=== PATIENT | female | born 1935 | race Caucasian/White ===

== ENCOUNTER 2018-01-12 19:30 | Observation (INO) ==
--- NOTE | 2018-01-12 19:54 | Emergency Department Note ---
Disposition Clinical Impression: TIA (transient ischemic attack) Disposition: Admitted As Inpatient Condition: Fair General Adult HPI - General Chief complaint: ED Neuro Symptoms/Deficit Stated complaint: Possible Stroke Time Seen by Provider: 01/12/18 19:44 Source: patient, family Mode of arrival: ambulatory Limitations: no limitations Nursing Notes Reviewed: Yes Vital Signs Reviewed: Yes - History of Present Illness HPI Narrative: 82-year-old female with significant past medical history of hypertension presenting to the emergency department chief complaint of stroke like symptoms. Patient states today around 2:00 she had a 5 minute episode where she was unable to speak. She states she could not get the words out. Son at bedside was there and witnessed the episode. He states it lasted approximately 5 minutes and then she went back to baseline. Has been asymptomatic since. Patient states she also had a mild headache at that time and laid down to sleep. When she woke up she was still having a mild headache so her son brought her in for further evaluation. They were concerned she had a stroke. She has no history of cardiac disease or stroke. Is not on any anticoagulation. Pain Scale: 3 - Related Data Home Medications Medication Instructions Recorded Confirmed Buspirone HCl [Buspar] 7.5 mg PO BID 01/12/18 01/12/18 Fluticasone Propionate Nasal 1 spray NS QPM 01/12/18 01/12/18 [Flonase] amLODIPine [Norvasc] 5 mg PO DAILY 01/12/18 01/12/18 Allergies Allergy/AdvReac Type Severity Reaction Status Date / Time aspirin Allergy See Verified 01/12/18 19:36 Comments azithromycin Allergy See Verified 01/12/18 19:36 Comments demeclocycline Allergy See Verified 01/12/18 19:36 [From Declomycin] Comments Iodamide Allergy See Verified 01/12/18 19:36 Comments lincomycin [From Lincocin] Allergy See Verified 01/12/18 19:36 Comments Penicillins Allergy See Verified 01/12/18 19:36 Comments Sulfa (Sulfonamide Allergy See Verified 01/12/18 19:36 Antibiotics) Comments All systems ED: reviewed and negative except as stated. Constitutional: Denies: fever, chills Eyes: Reports: as per HPI ENT ED: Reports: as per HPI Cardiovascular: Denies: chest pain, palpitations, dyspnea on exertion Respiratory: Denies: cough, dyspnea, wheezes Gastrointestinal: Denies: abdominal pain, nausea, vomiting Genitourinary: Reports: as per HPI Musculoskeletal: Reports: as per HPI Integumentary: Reports: as per HPI Neurological: Denies: numbness, paresthesias Psychiatric: Reports: as per HPI Endocrine: Reports: as per HPI Hematological/Lymphatic: Reports: as per HPI Allergic/Immunologic: Reports: as per HPI Past Medical History - Past Medical History Attestation: Yes The following information was validated with the patient. Medical history: Reports: cancer, diabetes, hypertension - Social History Smoking Status: Never smoker Smokeless Tobacco Status: No Alcohol use: Reports: none Drug use: Reports: none Physical Exam - General Limitations: no limitations General appearance: alert, in no apparent distress - Head Head exam: atraumatic, normocephalic, normal inspection - Eye Eye exam: Present: normal appearance, PERRL, EOMI. Absent: scleral icterus, conjunctival injection - ENT ENT exam: normal exam, mucous membranes moist - Neck Neck exam: Present: normal inspection, full ROM. Absent: tenderness, meningismus - Chest Chest inspection: Present: normal inspection, symmetric chest wall rise. Absent : tenderness, rash - Respiratory Respiratory exam: Present: normal lung sounds bilaterally. Absent: respiratory distress, wheezes - Cardiovascular Cardiovascular exam: Present: regular rate, normal rhythm, normal heart sounds - Abdominal Exam Abdominal exam: Present: soft, Non-Tender. Absent: distention, guarding, rebound - Extremities Exam Extremities exam: Present: normal inspection, full ROM - Neurological Exam Neurological exam: Present: alert, oriented X3, CN II-XII intact, normal gait, other (Cerebellar exam within normal limits). Absent: motor sensory deficit - Psychiatric Psychiatric exam: Present: normal affect, normal mood - Skin Skin exam: Present: warm, intact Course Course Narrative: 82-year-old female presenting for strokelike symptoms. On examination patient is asymptomatic. NIH score 0. She is alert and oriented 3 in the room. Hypertensive with a systolic in the 200s but otherwise hemodynamically stable. Concern for TIA at this time. We will perform a strokelike workup including CT of the head and basic laboratory analysis. Patient is allergic to IV dye therefore CTA of the head and neck will not be able to be completed. Disposition most likely admission but pending results. Patient agrees with this plan. We will not be able to provide the patient with aspirin in the emergency department due to her allergy. - Reevaluation(s) Reevaluation #1: Patient's laboratory analysis and CT of the head within normal limits. At this time will plan to admit her for further evaluation and TIA workup. I spoke with the hospitalist corrections cadet Dr. Amado who agrees to accept the patient at this time. Patient is alert and oriented 3 in the room. Hemodynamically stable. Patient agrees with this plan. Vital Signs Temperature 99.3 F 01/12/18 19:36 Pulse Rate 98 01/12/18 19:36 Respiratory Rate 16 01/12/18 19:36 Blood Pressure 227/102 01/12/18 19:36 O2 Sat by Pulse Oximetry 98 01/12/18 19:36 Temperature 97.9 F 01/13/18 04:01 Pulse Rate 78 01/13/18 04:01 Respiratory Rate 16 01/13/18 04:01 Blood Pressure 176/76 01/13/18 04:01 O2 Sat by Pulse Oximetry 97 01/13/18 04:01 Oxygen Delivery Oxygen Delivery Room Air Medical Decision Making - Lab Data Result diagrams: 01/12/18 20:31 01/12/18 20:31 Lab Results 01/12/18 01/12/18 01/12/18 Range/Units 20:31 20:31 20:31 WBC 4.5 (4.3-11.1) K/mcL RBC 5.35 H (3.82-4.97) M/mcL Hgb 15.8 H (11.5-15.4) g/dL Hct 46.8 H (35.3-44.9) % MCV 87.5 (83.0-100.0) fL MCH 29.5 (28.0-33.3) pg MCHC 33.8 (31.6-35.5) g/dL RDW 12.7 (11.5-14.5) % Plt Count 196 (140-400) K/mcL MPV 10.6 (9.4-12.4) fL PT 11.4 (9.4-12.1) Seconds INR 1.0 APTT 30.2 (26.0-36.0) Seconds Sodium 138 (136-145) mEq/L Potassium 3.8 (3.5-5.1) mEq/L Chloride 102 (98-107) mEq/L Carbon Dioxide 25 (23-29) mEq/L BUN 16 (8-23) mg/dL Creatinine 0.80 (0.60-1.20) mg/dL Est GFR ( Amer) > 60 (> 60) Est GFR (Non-Af Amer) > 60 (> 60) BUN/Creatinine Ratio 20 (6-26) Glucose 188 H (70-105) mg/dL Calculated Osmolality 292 (280-300) Calcium 9.4 (8.6-10.3) mg/dL Troponin I < 0.03 (< 0.04) ng/mL Attestation Statement - Attestation Attestation: Dr Emery note: Pt seen in conjunction w/ resident DR Sonia Landers; please see her charting for complete documentation; I spent face to face time w/ the pt and agree w/ the pt's treatment and disposition; Ct scan results reviewed; sx lasted approx 5 mins at home around 2:30 today; no signs/sx in the ER; Ct scan non focal; no indication for tpa at this time; accepted by the hospitalist, in improved/ stable condition;
[2018-01-12 20:55] LABS: Hematocrit 46.8 % (35.3-44.9); Hemoglobin 15.8 g/dL (11.5-15.4); Mean Corpuscular HGB Conc 33.8 g/dL (31.6-35.5); Mean Corpuscular Hemoglobin 29.5 pg (28.0-33.3); Mean Corpuscular Volume 87.5 fL (83.0-100.0); Mean Platelet Volume 10.6 fL (9.4-12.4); Platelet Count 196 K/mcL (140-400); Red Blood Count 5.35 M/mcL (3.82-4.97); Red Cell Distribution Width 12.7 % (11.5-14.5)
[2018-01-12 21:02] LABS: Prothrombin Time 11.4 Seconds (9.4-12.1)
[2018-01-12 21:05] LABS: Activated Partial Thrombo Time 30.2 Seconds (26.0-36.0)
[2018-01-12 21:16] LABS: BUN/Creatinine Ratio 20 (6-26); Blood Urea Nitrogen 16 mg/dL (8-23); Calcium 9.4 mg/dL (8.6-10.3); Carbon Dioxide 25 mEq/L (23-29); Chloride 102 mEq/L (98-107); Glucose 188 mg/dL (70-105); Osmolality,Calculated 292 (280-300); Potassium 3.8 mEq/L (3.5-5.1); Sodium 138 mEq/L (136-145); eGFR For Non-African Americans > 60 (> 60)
[2018-01-12 21:17] LABS: Troponin I < 0.03 ng/mL (< 0.04)
[2018-01-13] MEDS ORDERED: Naloxone 0.4 MG/ML INJ IVP PRN (05:09)
[2018-01-13] MEDS ORDERED: Dextrose Gel 15 GM/37.5 ML TUBE PO PRN ×2 (05:10)
[2018-01-13] MEDS ORDERED: *HR* Dextrose 50 % in Water (Syg) 50 ML SYRINGE IVP PRN (05:10)
[2018-01-13] MEDS ORDERED: D5% in Water 1,000 ML IVC PRN (05:10)
--- NOTE | 2018-01-13 05:20 | Internal Med History&Physical ---
Date of Encounter: 01/13/18 Time of Encounter: 03:43 Internal Medicine - H&P: HPI Chief complaint: TIA vs. CVA Admitted From: Emergency Dept Plans for Post Hospital Care: Home History of present illness: Ms. Bee is a 82 year old female Patient states she had an episode the day of her admission where she was unable to speak coherently for about 5 minutes. The episode occurred around 2pm, witnessed by the patient's [id number]. She had gotten up to go to the bathroom, then upon returning was trying to talk, but her words made no sense, and she could not talk. Her [id number] said that she thought the patient was also confused because she could not get her words out. She states that she has never had symptoms like this before. Her son was called and came over to the house to find the patient sitting on the couch, able to speak and no longer confused. He suggested that she go take a nap, which she did for about 2 hours. upon waking up she had a significant headache, and took 2 tylenol, which helped. Her son had done some research online regarding strokes, became concerned and decided to bring her to the ER for further evaluation. In the ER her cbc, BMP and troponin were within normal limits. A head CT also showed no acute intracranial abnormality. Due to her symptoms, she was admitted to the hospital for further monitoring. Upon my assessment, patient was sleeping comfortably in the hospital bed prior to my arrival. She was AOX3, and had no difficulty with answering questions. She denies headache, weakness, dysphagia, nause,a vomiting, chest pain, SOB, diarrhea and constipation. Past Med Surg Social Fam HX - Past Medical History Medical history: cancer, diabetes, hypertension Psychiatric history: no psych history - Past Surgical History Surgical History: breast surgery, cancer surgery - Social History Smoking Status: Never smoker Smokeless Tobacco Status: No Alcohol use: none Drug use: none - Family History Father Adopted: No Living Status: Age at : 85 Internal Medicine - H&P: Meds Buspirone HCl [Buspar] 7.5 mg PO BID 01/12/18 [History] Fluticasone Propionate Nasal [Flonase] 1 spray NS QPM 01/12/18 [History] amLODIPine [Norvasc] 5 mg PO DAILY 01/12/18 [History] 3 Allergy/AdvReac Type Severity Reaction Status Date / Time aspirin Allergy See Verified 01/12/18 19:36 Comments azithromycin Allergy See Verified 01/12/18 19:36 Comments demeclocycline Allergy See Verified 01/12/18 19:36 [From Declomycin] Comments Iodamide Allergy See Verified 01/12/18 19:36 Comments lincomycin [From Lincocin] Allergy See Verified 01/12/18 19:36 Comments Penicillins Allergy See Verified 01/12/18 19:36 Comments Sulfa (Sulfonamide Allergy See Verified 01/12/18 19:36 Antibiotics) Comments All Systems PM: A 10-system review of systems was performed and is negative for pertinent findings except as documented above in the HPI. - Constitutional Vitals: Temp Pulse Resp BP Pulse Ox 97.9 F 78 16 176/76 97 01/13/18 04:01 01/13/18 04:01 01/13/18 04:01 01/13/18 04:01 01/13/18 04:01 General appearance: Present: cooperative, A&O X 3, pleasant, no acute distress, answers questions appropriately Exam: As above - Head Head exam: Present: normal inspection - Eye Eye exam: Present: EOMI, normal appearance - Neck Neck exam general surgery: Present: full ROM. Absent: tenderness - Respiratory Respiratory exam: Present: CTAB. Absent: chest wall tenderness, decreased breath sounds, respiratory distress, wheezes - Cardiovascular Cardiovascular exam: Absent: diastolic murmur, systolic murmur - GI/Abdominal GI/Abdominal exam: Present: normal bowel sounds, soft. Absent: guarding, tenderness - Extremities Exam Extremities exam: Present: normal inspection, warm, radial pulses palpable and symmetrical. Absent: calf tenderness, pedal edema, tenderness - Neurological Exam Neurological exam: Present: CN II-XII intact, oriented X3, no focal deficits, strengths equal and symetr throughout. Absent: motor sensory deficit, pronater drift, facial droop, speech deficit - Psychiatric Psychiatric exam: Present: normal affect, normal mood - Skin Skin exam: Present: dry, normal color, warm Internal Med - H&P Results - Labs CBC & Chem 7: 01/13/18 05:21 01/13/18 05:21 - Assessment and plan (1) TIA (transient ischemic attack) Current Visit: Yes Status: Acute Assessment and plan: Patient had an episode of expressive aphasia the afternoon of her admission. Episode lasted about 5 minutes. Currently her speech deficit has resolved. CT head was negative. MRI in the morning Continue to monitor. (2) Diabetes Current Visit: Yes Status: Acute Assessment and plan: Dietary controlled, not on insulin. Monitor sugars with meals and at night Low dose sliding scale insulin as needed. Qualifiers: Diabetes mellitus type: type 2 Diabetes mellitus residential insulin use: without residential use Diabetes mellitus complication status: without complication Qualified Code(s): E11.9 - Type 2 diabetes mellitus without complications (3) DVT prophylaxis Current Visit: Yes Status: Acute Assessment and plan: SCDs - Time Spent With Patient Total time spent is greater than 50% in coordination of care (as documented) at patient's floor/unit and/or counseling patient: Greater than 35 minutes
[2018-01-13 05:36] LABS: Hematocrit 42.8 % (35.3-44.9); Hemoglobin 14.6 g/dL (11.5-15.4); Mean Corpuscular HGB Conc 34.1 g/dL (31.6-35.5); Mean Corpuscular Volume 87.9 fL (83.0-100.0); Mean Platelet Volume 10.6 fL (9.4-12.4); Platelet Count 182 K/mcL (140-400); Red Blood Count 4.87 M/mcL (3.82-4.97); Red Cell Distribution Width 12.8 % (11.5-14.5)
[2018-01-13 05:53] LABS: BUN/Creatinine Ratio 18 (6-26); Blood Urea Nitrogen 14 mg/dL (8-23); Calcium 9.1 mg/dL (8.6-10.3); Carbon Dioxide 28 mEq/L (23-29); Chloride 102 mEq/L (98-107); Chol/HDL Ratio 2.9 (0-4.9); Cholesterol 197 mg/dL (< 200); Glucose 195 mg/dL (70-105); HDL Cholesterol 69 mg/dL (40-59); LDL Cholesterol,Calculated 112 mg/dL (0-99); Osmolality,Calculated 292 (280-300); Potassium 3.9 mEq/L (3.5-5.1); Sodium 138 mEq/L (136-145); Triglycerides 82 mg/dL (< 150); eGFR For Non-African Americans > 60 (> 60)
[2018-01-13] MEDS ORDERED: *HR* Heparin 5,000 UNIT/ML VIAL SQ SCH (06:00)
[2018-01-13] MEDS: Insulin LISPRO 300 UNITS/3 ML VIAL SQ SCH ×4 (07:40→16:34)
--- NOTE | 2018-01-13 10:16 | Event Note ---
Date of Encounter: 01/13/18 Time of Encounter: 10:00 82 year old femal came in with expressive aphasia Exam Neuro: WNL Plan 1. TIA/CVA. Pt came in with episode of expressive aphasia. CT head negative. Obtain MRI brain. Neuro recs appreciated Obtain lipid panel. Has aspirin allergy MRI negative, awaiting echo and carotid ultrasound results. Appreciate neuro recs Started on plavix and atorvastatin
[2018-01-13 11:08] VITALS: BP 170/72
[2018-01-13] MEDS ORDERED: amLODIPine 5 MG TABLET PO SCH (11:15)
--- NOTE | 2018-01-13 12:46 | Neurology - Consult Note ---
Date of Encounter: 01/13/18 Time of Encounter: 12:36 Assessment and Plan (1) TIA (transient ischemic attack) Current Visit: Yes Status: Acute 82 year old woman with dementia, HTN, DM, hyperlipidemia who developed an episode of slurred speech lasting few hours in duration. Symptoms were without focal motor or sensory deficits. MRI of brain negative for CVA. Concerns for TIA. Would recommend TIA work up including TTE, carotid artery duplex, started her on Plavix 75mg daily. Patient also needs statin therapy. Await echo and carotid artery duplex result, if these returns unremarkable, the patient can be discharged home from neurology perspective. Recommend outpatient rhythm recording for possible cardiac dysarrhythmia, especially atrial fibrillation in this age group. Please continue medical and supportive care History of Present Illness Chief complaint: slurred speech HPI: Ms. Bee is a 82 year old female with PMH significant for HTN, DM, hyperlipidemia and MCI who developed an episode of slurred speech. patient interviewed in the presence of her daughter, son and daughter in law. Patient was talking to her daughter in law who noticed first that the patient was unable to get the words out which has never happened before. She states that she had a headache at the time. Patient has history of dementia and she gets confused but she has never had difficulty speaking per her . The speech difficulty lasted few hours and spontaneously resolved. in the ER, her BP was in the range of 170/90 which is not normal for her. She does have migraines that are usually associated with visual changes but this time it was just a headache. CT of head showed no acute intracranial abnormality. Patient currently denies significant discomforts Is allergic to aspirin with development of hives. No history of atrial fibrillation Past Med Surg Social Fam HX - Past Medical History Medical history: cancer, diabetes, hypertension Psychiatric history: no psych history - Past Surgical History Surgical History: breast surgery, cancer surgery - Social History Smoking Status: Never smoker Smokeless Tobacco Status: No Alcohol use: none Drug use: none - Family History Father Adopted: No Living Status: Age at : 85 Medications and Allergies Buspirone HCl [Buspar] 7.5 mg PO BID 01/12/18 [History] Fluticasone Propionate Nasal [Flonase] 1 spray NS QPM 01/12/18 [History] amLODIPine [Norvasc] 5 mg PO DAILY 01/12/18 [History] 3 Allergy/AdvReac Type Severity Reaction Status Date / Time aspirin Allergy See Verified 01/12/18 19:36 Comments azithromycin Allergy See Verified 01/12/18 19:36 Comments demeclocycline Allergy See Verified 01/12/18 19:36 [From Declomycin] Comments Iodamide Allergy See Verified 01/12/18 19:36 Comments lincomycin [From Lincocin] Allergy See Verified 01/12/18 19:36 Comments Penicillins Allergy See Verified 01/12/18 19:36 Comments Sulfa (Sulfonamide Allergy See Verified 01/12/18 19:36 Antibiotics) Comments All Systems: The remainder of the systems were reviewed and are negative Physical Examination - Vital Signs Vital Signs: Initial Vital Signs Temp Pulse Resp BP Pulse Ox 99.3 F 98 16 227/102 98 01/12/18 19:36 01/12/18 19:36 01/12/18 19:36 01/12/18 19:36 01/12/18 19:36 - Constitutional General appearance: comfortable - Neurologic Detailed motor examination: full strength in all major muscle groups Motor examination - right side: 5/5: deltoids, biceps, triceps, wrist flexion, wrist extension, automotive technician, hip flexors, tibialis Anterior, quadriceps, toe extension (EHL), plantarflexion Motor examination - left side: 5/5: deltoids, biceps, triceps, wrist flexion, wrist extension, hip flexors, automotive technician, quadriceps, tibialis Anterior, toe extension (EHL), plantarflexion Detailed sensory examination: intact Posture: other (None) Reflex and gait examination: intact Reflexes: Biceps: 2+, Triceps: 2+, Brachioradialis: 2+, Patella: 2+, Achilles: 2 + Mental Status Examination: awake, alert, oriented to person, oriented to place, oriented to time, follows commands appropriately, answers questions appropriately, no agnosia, no aphasia, no aproxia Cranial nerve examination: PERRL, EOMI, visual clemente intact, corneal reflexes brisk symmetrically, sensory to face intact, mastication intact, no facial asymmetry is present, no dysarthria, hearing is intact symmetrically, soft palate elevates bilaterally upon phonation, gag reflex intact, flexes SCM and trapezius muscles symmetrically with full power, tongue protrudes midline, no atrophy or facial fasiculations present Cerebellar examination: no dysmetria, performs finger to nose and heel to pinedo symmetrically without ataxia, no gait ataxia, no truncal ataxia, no difficulty with rapid alternating movements Results - Laboratory Findings CBC and BMP: 01/13/18 05:21 01/13/18 05:21 Abnormal lab findings: Abnormal lab results Glucose 195 mg/dL (70-105) H 01/13/18 05:21 POC Glucose 149 mg/dL (70-99) H 01/13/18 07:45 LDL Cholesterol, Calc 112 mg/dL (0-99) H 01/13/18 05:21 HDL Cholesterol 69 mg/dL (40-59) H 01/13/18 05:21 Consult Discharge Plan - Plan Referrals: Babak Lucio MD [Primary Care Provider] -
[2018-01-13 13:09] LABS: Chol/HDL Ratio 2.9 (0-4.9)
--- NOTE | 2018-01-13 17:22 | Discharge Summary ---
Date of Encounter: 01/13/18 Time of Encounter: 17:00 - Discharge Diagnosis (1) TIA (transient ischemic attack) Priority: Primary Status: Acute Assessment and Plan: Ms. Bee is a 82 year old female. Patient states she had an episode the day of her admission where she was unable to speak coherently for about 5 minutes. The episode occurred around 2pm, witnessed by the patient's daughter-in -law. She had gotten up to go to the bathroom, then upon returning was trying to talk, but her words made no sense, and she could not talk. Her daughter-in- law said that she thought the patient was also confused because she could not get her words out. She was assessed with TIA r/o acute CVA. She was seen by neurology and had an MRI, echo and a carotid ultrasound which all came back WNL. She was discharged on plavix and statin due to an aspirin allergy. She was discharged in a stable condition Hospital course: Ms. Bee is a 82 year old female - Time Spent with Patient Total time spent providing and/or coordinating discharge services: - Discharge Medications Prescriptions: Atorvastatin [Lipitor] 40 mg PO HS 30 Days #30 tablet Clopidogrel [Plavix] 75 mg PO DAILY 30 Days #30 tablet Home Medications: Buspirone HCl [Buspar] 7.5 mg PO BID 01/12/18 [History] Fluticasone Propionate Nasal [Flonase] 1 spray NS QPM 01/12/18 [History] amLODIPine [Norvasc] 5 mg PO DAILY 01/12/18 [History] Atorvastatin [Lipitor] 40 mg PO HS 30 Days #30 tablet 01/13/18 [Rx] Clopidogrel [Plavix] 75 mg PO DAILY 30 Days #30 tablet 01/13/18 [Rx] Allergies/Adverse Reactions: 3 Allergy/AdvReac Type Severity Reaction Status Date / Time aspirin Allergy See Verified 01/12/18 19:36 Comments azithromycin Allergy See Verified 01/12/18 19:36 Comments demeclocycline Allergy See Verified 01/12/18 19:36 [From Declomycin] Comments Iodamide Allergy See Verified 01/12/18 19:36 Comments lincomycin [From Lincocin] Allergy See Verified 01/12/18 19:36 Comments Penicillins Allergy See Verified 01/12/18 19:36 Comments Sulfa (Sulfonamide Allergy See Verified 01/12/18 19:36 Antibiotics) Comments Date of admission: 01/12/18 22:14 Primary care physician: Babak Lucio MD Consults: 01/13/18 10:13 Consult to Neurology [CONS] Routine Consulting Provider: [facility] Reason for Consult: tia r/o stroke. Expressive aphasia Call Completed: No - Constitutional Vitals: Temp Pulse Resp BP Pulse Ox 98.1 F 95 16 170/72 98 01/13/18 11:00 01/13/18 11:00 01/13/18 11:00 01/13/18 11:00 01/13/18 11:00 General appearance: Present: cooperative, A&O X 3, pleasant, no acute distress, answers questions appropriately Exam: As above - Head Head exam: Present: atraumatic, normocephalic - Eye Eye exam: Present: PERRL, conjuntiva pink, sclera anicteric Pupils: Present: PERRL - Neck Neck exam general surgery: Present: supple, trachea midline. Absent: lymphadenopathy - Respiratory Respiratory exam: Present: CTAB. Absent: accessory muscle use, rales, rhonchi, wheezes - Cardiovascular Cardiovascular exam: Present: RRR, +S1, +S2. Absent: diastolic murmur, gallop, rubs, systolic murmur - GI/Abdominal GI/Abdominal exam: Present: normal bowel sounds, soft, no peritoneal signs. Absent: distended, tenderness - Extremities Exam Extremities exam: Present: warm, radial pulses palpable and symmetrical. Absent : calf tenderness, cyanotic, pedal edema - Neurological Exam Neurological exam: Present: CN II-XII intact, oriented X3, no focal deficits. Absent: pronater drift, facial droop, speech deficit - Skin Skin exam: Present: dry, intact - Patient Status Disposition: Home, Self-Care Condition: Good - Discharge Instructions Follow Up With: Babak uLcio MD [Primary Care Provider] -
[2018-01-13] MEDS ORDERED: Fluticasone Propionate Nasal 50 MCG/SPRAY BOTTLE NS SCH (18:00)
[2018-01-13] MEDS ORDERED: Insulin LISPRO 300 UNITS/3 ML VIAL SQ SCH (21:00)
== END 2018-01-13 19:05 | disposition home or self-care (01) ==
LOC: 3BNU 19:30 → EMEROOARM 19:30 → 3BNU 23:23
PROVIDERS: ADMIT Pediatrics; ATTEND Pediatrics